=== PATIENT | female | born 1980 | race Two or more races ===

== ENCOUNTER 2025-01-31 16:38 | Emergency (ER) | payer OTHER ==
[~2025-01-31] VITALS: Ht 170.2 cm; Wt 77.1 kg
[~2025-01-31 16:38] MED LIST: FLEXERIL10 MG PO; TORADOL15 MG IM
[2025-01-31] MEDS ORDERED: cloNIDine HCL 0.2 MG TABLET PO STA (19:30)
[2025-01-31 20:17] LABS: HEMATOCRIT 43.1 % (36.0-45.00); HEMOGLOBIN 14.2 g/dL (12.0-15.00); MEAN CELL VOLUME 87.4 fL (80.00-100.00); MEAN CORPUSCULAR HEMOGLOBIN 28.7 pg (27.00-32.0); MEAN CORPUSCULAR HGB CONC 32.9 g/dl (32.0-36.0); PLATELET COUNT 386 K/uL (150-450); RED BLOOD COUNT 4.93 M/uL (4.00-6.00); RED CELL DISTRIBUTION WIDTH 13.8 % (11.5-14.5)
[2025-01-31 20:41] LABS: ALBUMIN 4.1 gm/dL (3.4-5.0); BILIRUBIN TOTAL 0.28 mg/dL (0.3-1.2); CALCIUM 9.4 mg/dL (8.5-10.1); CREATININE SERUM 0.79 mg/dL (0.55-1.02); GFR 79.06; POTASSIUM 3.9 mEq/L (3.5-5.1); TOTAL PROTEIN 9.1 gm/dL (6.4-8.2)
[2025-01-31 21:12] LABS: URINE APPEARANCE Clear; URINE BILIRRUBIN Negative (NEGATIVE); URINE BLOOD Negative; URINE COLOR Yellow; URINE GLUCOSE Negative (NEGATIVE); URINE KETONE Negative (NEGATIVE); URINE LEUKOCYTE Negative; URINE NITRATE Negative; URINE PROTEIN Negative (NEGATIVE); URINE UROBILINOGEN 0.2 E.U./dl
[2025-01-31 21:31] LABS: URINE BACTERIA 387.8 uL (0.0-1933); URINE EPITHELIAL CELLS 13.9 uL (0.0-38.8); URINE RBC 8.2 uL (0.0-20.8); URINE WBC 6.6 uL (0.0-23.2)
[2025-01-31 21:53] LABS: URINE CAST 0.14 uL (0.0-1.40)
== END 2025-01-31 22:05 | disposition home or self-care (01) ==
LOC: ER 16:41
DX: I10 Essential (primary) hypertension (principal); Z88.6 Allergy status to analgesic agent